=== PATIENT | female | born 1935 | race Caucasian/White ===

== ENCOUNTER 2018-01-01 14:14 | Inpatient (IN) | payer MEDICARE, BC ==
[~2018-01-01] VITALS: Ht 162.6 cm; Wt 69.1 kg
[~2018-01-01 14:14] MED LIST: CRANBERRY400 MG PO; EPA FISH OIL1000 MG PO; FLEXERIL 1010 MG/TAB PO; MILK OF MAGNESI30 M1 PO; MIRALAX PA17 GM/Dose PO; MUCINEX 60600 MG/TA1 PO; NORCO 325 MG-7.1 TAB PO; PROTONIX 40MG T40 MG PO; XANAX 0.5MG0.5 MG PO
[2018-01-01] MEDS ORDERED: CALCIUM 600/VIT1 CAP PO (14:54)
[2018-01-01 16:32] LABS: TROPONIN-I 0.148 ng/mL (0.000-0.034)
[2018-01-01 16:47] LABS: TSH w REFLEX 1.11 uIU/mL (0.465-4.680)
[2018-01-01 17:08] VITALS: BP 126/67; PULSE 87; TEMP 97.6
[2018-01-01 19:36] VITALS: BP 121/91; PULSE 87; TEMP 98.4
[2018-01-01 23:34] VITALS: BP 96/63; PULSE 90; TEMP 98.9
[2018-01-02] VITALS (21 sets, daily range): BP systolic 73–123; BP diastolic 39–74; PULSE 70–114; TEMP 97.3–99
[2018-01-02 06:39] LABS: BASO % 0.3 % (0.0-2.0); EOS % 0.3 % (0-4.0); GRAN # 9.4 (1.4-6.5); GRAN % 78.5 % (42.2-75.2); LYMPH # 1.3 (1.2-3.4); LYMPH % 11.2 % (20.0-51.0); MEAN CELL VOLUME 91 fl (80.0-100.0); MEAN CORPUSCULAR HGB CONC 32 g/dl (33.0-37.0); MEAN PLATELET VOLUME 9.6 fl (7.4-10.4); MONO # 1.1 (0.1-0.6); MONO % 9.1 % (1.7-9.3); PLATELET COUNT 163 K/mm3 (130-400); RED BLOOD COUNT 3.15 M/mm3 (4.10-5.30); REDCELL DISTRIBUTION WIDTH-CV 13.4 % (11.5-14.5)
[2018-01-02 06:40] LABS: HEMATOCRIT 28.6 % (37.0-47.0); HEMOGLOBIN 9.2 g/dl (12.5-16.0); MEAN CORPUSCULAR HEMOGLOBIN 29 pg (27.0-31.0)
[2018-01-02 06:51] LABS: CALCIUM 7.8 mg/dL (8.4-10.2); CHOLESTEROL RISK RATIO 3.4; CREATININE, serum 1.05 mg/dL (0.52-1.25); POTASSIUM 4.2 mmol/L (3.4-5.0)
[2018-01-03] VITALS (8 sets, daily range): BP systolic 88–102; BP diastolic 40–54; PULSE 73–87; TEMP 98.1–98.8
[2018-01-03 06:24] LABS: BASO % 0.1 % (0.0-2.0); GRAN # 12.9 (1.4-6.5); GRAN % 89.8 % (42.2-75.2); LYMPH # 0.5 (1.2-3.4); LYMPH % 3.6 % (20.0-51.0); MEAN CELL VOLUME 91 fl (80.0-100.0); MEAN CORPUSCULAR HGB CONC 33 g/dl (33.0-37.0); MEAN PLATELET VOLUME 10.2 fl (7.4-10.4); MONO # 0.8 (0.1-0.6); MONO % 5.7 % (1.7-9.3); PLATELET COUNT 132 K/mm3 (130-400); RED BLOOD COUNT 2.59 M/mm3 (4.10-5.30); REDCELL DISTRIBUTION WIDTH-CV 13.1 % (11.5-14.5)
[2018-01-03 06:26] LABS: HEMATOCRIT 23.6 % (37.0-47.0); HEMOGLOBIN 7.7 g/dl (12.5-16.0); MEAN CORPUSCULAR HEMOGLOBIN 30 pg (27.0-31.0)
[2018-01-03 06:39] LABS: CALCIUM 7.5 mg/dL (8.4-10.2); CREATININE, serum 0.91 mg/dL (0.52-1.25); POTASSIUM 4.2 mmol/L (3.4-5.0)
[2018-01-03 18:53] LABS: HEMOGLOBIN 8.9 g/dl (12.5-16.0)
[2018-01-04] VITALS: BP 126/80; PULSE 50; TEMP 98
[2018-01-04 04:00] VITALS: BP 111/65; PULSE 88; TEMP 98.5
[2018-01-04 06:37] LABS: MEAN CELL VOLUME 93 fl (80.0-100.0); MEAN CORPUSCULAR HGB CONC 32 g/dl (33.0-37.0); MEAN PLATELET VOLUME 10.4 fl (7.4-10.4); PLATELET COUNT 155 K/mm3 (130-400); RED BLOOD COUNT 2.61 M/mm3 (4.10-5.30); REDCELL DISTRIBUTION WIDTH-CV 13.5 % (11.5-14.5)
[2018-01-04 06:49] LABS: CALCIUM 7.4 mg/dL (8.4-10.2); CREATININE, serum 0.98 mg/dL (0.52-1.25); POTASSIUM 4.4 mmol/L (3.4-5.0)
[2018-01-04 06:53] LABS: HEMATOCRIT 24.3 % (37.0-47.0); HEMOGLOBIN 7.8 g/dl (12.5-16.0); MEAN CORPUSCULAR HEMOGLOBIN 30 pg (27.0-31.0)
[2018-01-04 07:20] VITALS: BP 115/64; PULSE 83; TEMP 99.1
[2018-01-04 07:49] LABS: BAND 12 % (0-10); LYMPHOCYTE 5 % (20.0-51.0); NEUTROPHILS 80 % (42.0-75.2)
[2018-01-04 07:52] LABS: PLATELET ESTIMATE NORMAL (NORMAL)
[2018-01-04 07:53] LABS: HYPOCHROMIA 1+
[2018-01-04 11:37] VITALS: BP 96/49; PULSE 64; TEMP 98.3
[2018-01-04 15:13] VITALS: BP 146/86; PULSE 87; TEMP 97.7
[2018-01-04 20:00] VITALS: BP 99/42; PULSE 82; TEMP 98.1
[2018-01-05] VITALS: BP 105/44; PULSE 92; TEMP 98.5
[2018-01-05 04:00] VITALS: BP 125/66; PULSE 93; TEMP 98.7
[2018-01-05 08:00] VITALS: BP 119/48; PULSE 77; TEMP 99
[2018-01-05 11:27] VITALS: BP 110/67; PULSE 80; TEMP 98.7
[2018-01-05 16:16] VITALS: BP 138/66; PULSE 92; TEMP 98.7
[2018-01-05 20:00] VITALS: BP 126/82; PULSE 78; TEMP 97.6
[2018-01-06 07:30] VITALS: BP 127/60; PULSE 94; TEMP 98.5
[2018-01-06] MEDS ORDERED: ELIQUIS 5MG PO (08:18)
[2018-01-06] MEDS ORDERED: LOPRESSOR 225 MG/TAB PO (08:18)
[2018-01-06] MEDS ORDERED: ASPIRIN E.C. 8181 MG PO (08:19)
[2018-01-06] MEDS ORDERED: LIPITOR20 MG PO (08:19)
[2018-01-06] MEDS ORDERED: TYLENOL 325MG325 MG PO (08:20)
[2018-01-06] MEDS ORDERED: DULCOLAX S10 MG/SUPP RC (08:21)
[2018-01-06] MEDS ORDERED: COLACE 100100 MG/CAP PO (08:22)
[2018-01-06] MEDS ORDERED: GOOD NEIGH1200 MG/15 PO (08:23)
[2018-01-06] MEDS ORDERED: NORCO 325 MG-7.1 TAB PO (08:24)
[2018-01-06] MEDS ORDERED: XANAX 0.5MG0.5 MG PO (08:34)
[2018-01-06 09:09] LABS: CALCIUM 8.3 mg/dL (8.4-10.2); CREATININE, serum 0.99 mg/dL (0.52-1.25); HEMOGLOBIN 8.4 g/dl (12.5-16.0); POTASSIUM 4.5 mmol/L (3.4-5.0)
== END 2018-01-06 11:26 | disposition swing bed (61) | DRG 480 ==
LOC: SURG 14:14
PROVIDERS: Nurse Practitioner Family; Orthopaedic Surgery; Physician Assistant
PROC: 0QS706Z Reposition Left Upper Femur with Intramedullary Internal Fixation Device, Open Approach (ICD-10-PCS; principal; 2018-01-02 13:15)
DX: M80.052A Age-related osteoporosis with current pathological fracture, left femur, initial encounter for fracture (principal); I21.4 Non-ST elevation (NSTEMI) myocardial infarction; N39.0 Urinary tract infection, site not specified; D62 Acute posthemorrhagic anemia; W18.30XA Fall on same level, unspecified, initial encounter; I48.91 Unspecified atrial fibrillation; Z79.01 Long term (current) use of anticoagulants; Z85.828 Personal history of other malignant neoplasm of skin
CPT/HCPCS: 99223-AI; 99232-AI; A9284; A9502; C1713; J0696; J1100; J2250; J2270; J2370; J2405; J2704; J2785; J3010; J7030; J7050; P9016